=== PATIENT | female | born 1970 | race Caucasian/White ===

== ENCOUNTER 2016-11-27 09:53 | Day surgery (SDC) | payer OTHER ==
[~2016-11-27] VITALS: Ht 154.9 cm; Wt 84.5 kg
[~2016-11-27 09:53] MED LIST: AMOX1TAB61 PO; ASCO-96 PO; CALCIUM PO; DICL100T PO; FLAX1CAP PO; GLUC500T8 PO; IRON PO; LISI1TAB3 PO; LISI1TAB5 PO; METF500T4 PO; OMEG100023 PO; SIMV20TA3 PO; VENL75CA PO; VITA1TAB3 PO
[2016-11-27] MEDS ORDERED: LACTATED RINGERS 1,000 ML IV SCH (10:31)
[2016-11-27] MEDS ORDERED: BUPIVACAINE/PF-EPI 0.25% 1:200K ONE (10:33)
[2016-11-27] MEDS ORDERED: SILVER NITRATE STICK TP ONE (10:33)
[2016-11-27 10:35] VITALS: BP 138/90
[2016-11-27 10:47] LABS: HCG UR OBC PASS
[2016-11-27] MEDS ORDERED: ACETAMINOPHEN 500 MG TABLET ONE ×2 (10:49→11:09)
[2016-11-27] MEDS ORDERED: MIDAZOLAM 1 MG/ML, 2ML ONE (10:51)
[2016-11-27] MEDS ORDERED: FENTANYL PF 250 MCG/5ML ONE (10:51)
[2016-11-27] MEDS ORDERED: PROMETHAZINE 25 MG/ML, 1ML IV PRN (11:00)
[2016-11-27] MEDS ORDERED: OXYcodone 5 MG/5 ML ORAL.SOL UDC PO PRN (11:00)
[2016-11-27] MEDS ORDERED: ONDANSETRON 2MG/ML, 2ML IVPush PRN (11:00)
[2016-11-27] MEDS ORDERED: MEPERIDINE/PF 25MG/0.5ML IVPush PRN (11:00)
[2016-11-27] MEDS ORDERED: hydrALAzine 20 MG/ML, 1ML IV PRN (11:00)
[2016-11-27] MEDS ORDERED: METOPROLOL 1 MG/ML, 5ML IV PRN (11:00)
[2016-11-27] MEDS ORDERED: HYDROmorphone 1 MG/ML, 1ML IV PRN (11:00)
[2016-11-27] MEDS ORDERED: FENTANYL PF 100 MCG/2ML IV PRN (11:00)
[2016-11-27] MEDS ORDERED: MIDAZOLAM 1 MG/ML, 2ML IV PRN (11:00)
[2016-11-27] MEDS ORDERED: EPHEDRINE 50 MG/ML, 1ML IVPush PRN (11:00)
[2016-11-27] MEDS ORDERED: LABETALOL 5MG/ML, 20ML IV PRN (11:00)
[2016-11-27] MEDS ORDERED: METOCLOPRAMIDE 5 MG/ML, 2ML IV PRN (11:00)
[2016-11-27] MEDS ORDERED: SCOPOLAMINE PATCH, 1.5MG PATCH.TD72 TD ONE ×2 (11:07→11:30)
[2016-11-27] MEDS ORDERED: ACETAMINOPHEN 500 MG TABLET PO ONE (11:30)
[2016-11-27] MEDS ORDERED: ONDANSETRON 2MG/ML, 2ML ONE ×2 (12:54→16:27)
[2016-11-27] MEDS ORDERED: METOCLOPRAMIDE 5 MG/ML, 2ML ONE ×2 (13:18→16:27)
[2016-11-27] MEDS ORDERED: PROPOFOL 10 MG/ML, 20ML ONE (16:27)
[2016-11-27] MEDS ORDERED: ALBUTEROL SULFATE 200 PUFFS/8.5 GR INH ONE (16:27)
[2016-11-27] MEDS ORDERED: KETOROLAC 30 MG/1 ML ONE (16:27)
== END 2016-11-27 14:45 | disposition home or self-care (01) ==
LOC: OUT 09:53
PROVIDERS: ATTEND Obstetrics & Gynecology
DX: N93.8 Other specified abnormal uterine and vaginal bleeding (principal); E66.01 Morbid (severe) obesity due to excess calories; Z68.35 Body mass index [BMI] 35.0-35.9, adult; Z90.49 Acquired absence of other specified parts of digestive tract; F32.9 Major depressive disorder, single episode, unspecified; E11.9 Type 2 diabetes mellitus without complications; I10 Essential (primary) hypertension; Z96.651 Presence of right artificial knee joint; Z98.51 Tubal ligation status; Z85.038 Personal history of other malignant neoplasm of large intestine; G43.909 Migraine, unspecified, not intractable, without status migrainosus; Z80.3 Family history of malignant neoplasm of breast; Z80.0 Family history of malignant neoplasm of digestive organs; Z82.49 Family history of ischemic heart disease and other diseases of the circulatory system; Z83.3 Family history of diabetes mellitus; Z83.49 Family history of other endocrine, nutritional and metabolic diseases
CPT/HCPCS: 58563; 81025; 82962; J1885; J2250; J2405; J2704; J2765; J3010; J7120

== ENCOUNTER → 2017-01-09 | Outpatient (CLI) | payer OTHER | END | disposition home or self-care (01) | LOC: CFH 11:30 | PROVIDERS: ATTEND Physician Assistant | DX: R59.1 Generalized enlarged lymph nodes (principal) | CPT/HCPCS: 76536 ==

== ENCOUNTER → 2017-05-15 | Outpatient (CLI) | payer OTHER ==
[~2017-05-15] MED LIST changes: +GLUC500T11 PO; -GLUC500T8 PO
[2017-05-15 15:15] LABS: ASPARTATE AMINO TRANSFERASE 18 U/L (15-37); BLOOD UREA NITROGEN 14 mg/dL (7-18)
== END | disposition home or self-care (01) ==
LOC: STAR 14:02
PROVIDERS: ATTEND Orthopaedic Surgery Orthopaedic Surgery of the Spine
DX: Z01.818 Encounter for other preprocedural examination (principal); M25.562 Pain in left knee
CPT/HCPCS: 36415; 80053; 93005

== ENCOUNTER 2017-05-24 08:41 | Day surgery (SDC) | payer OTHER ==
[~2017-05-24] VITALS: Ht 154.9 cm; Wt 83.0 kg
[~2017-05-24 08:41] MED LIST changes: +BACITRACIN 50,000 UNIT ONE; +BUPIVACAINE/PF 0.5% ONE; +EPINEPHRINE 1 MG/ML, 1ML ONE
[2017-05-24] MEDS ORDERED: LACTATED RINGERS 1,000 ML IV SCH (09:00)
[2017-05-24 09:31] VITALS: BP 139/90
[2017-05-24] MEDS ORDERED: MIDAZOLAM 1 MG/ML, 2ML ONE (09:33)
[2017-05-24] MEDS ORDERED: FENTANYL PF 100 MCG/2ML ONE ×3 (09:33→12:46)
[2017-05-24] MEDS ORDERED: LIDOCAINE-MPF 1%, 5ML ONE (10:18)
[2017-05-24] MEDS ORDERED: BUPIVACAINE/PF 0.5% ONE (10:18)
[2017-05-24] MEDS ORDERED: methylPREDNISolone*ACETATE* 80 MG/ML ONE ×2 (10:18→10:24)
[2017-05-24] MEDS ORDERED: EPINEPHRINE 1 MG/ML, 1ML ONE (10:25)
[2017-05-24] MEDS ORDERED: PROPOFOL 10 MG/ML, 20ML ONE (10:29)
[2017-05-24] MEDS ORDERED: DEXAMETHASONE 4 MG/ML, 1ML ONE (10:29)
[2017-05-24] MEDS ORDERED: KETOROLAC 30 MG/1 ML ONE (10:29)
[2017-05-24] MEDS ORDERED: SUCCINYLCHOLINE 20 MG/ML, 10ML ONE (10:29)
[2017-05-24] MEDS ORDERED: ONDANSETRON 2MG/ML, 2ML ONE (10:29)
[2017-05-24] MEDS ORDERED: CEFAZOLIN 1,000 MG ONE (10:29)
[2017-05-24] MEDS ORDERED: EPHEDRINE 50 MG/ML, 1ML ONE (10:29)
[2017-05-24] MEDS ORDERED: LABETALOL 5MG/ML, 20ML IV PRN (11:00)
[2017-05-24] MEDS ORDERED: ACETAMINOPHEN 325 MG TABLET PO PRN (11:00)
[2017-05-24] MEDS ORDERED: ALBUTEROL/IPRATROPIUM 2.5MG/0.5MG, 3 ML NPPB PRN (11:00)
[2017-05-24] MEDS ORDERED: LORazepam 2 MG/ML, 1ML IVPush PRN (11:00)
[2017-05-24] MEDS ORDERED: ONDANSETRON 2MG/ML, 2ML IVPush PRN (11:00)
[2017-05-24] MEDS ORDERED: MEPERIDINE/PF 25MG/0.5ML IVPush PRN (11:00)
[2017-05-24] MEDS ORDERED: hydrALAzine 20 MG/ML, 1ML IV PRN (11:00)
[2017-05-24] MEDS ORDERED: OXYcodone 5 MG/5 ML ORAL.SOL UDC PO PRN (11:00)
[2017-05-24] MEDS ORDERED: HYDROmorphone 1 MG/ML, 1ML IV PRN (11:00)
[2017-05-24] MEDS ORDERED: FENTANYL PF 100 MCG/2ML IV PRN (11:00)
[2017-05-24] MEDS ORDERED: DIAZEPAM 5 MG/ML, 2ML IVPush PRN (11:00)
[2017-05-24] MEDS ORDERED: MIDAZOLAM 1 MG/ML, 2ML IV PRN (11:00)
[2017-05-24] MEDS ORDERED: PROMETHAZINE 25 MG/ML, 1ML IV PRN (11:00)
[2017-05-24] MEDS ORDERED: METOCLOPRAMIDE 5 MG/ML, 2ML IV PRN (11:00)
[2017-05-24] MEDS ORDERED: EPINEPHRINE 1 MG/ML, 1ML INFIL ONE (11:08)
[2017-05-24] MEDS ORDERED: ACETAMINOPHEN 325 MG TABLET ONE (12:23)
[2017-05-24] MEDS ORDERED: ACETAMINOPHEN 650 MG/20.3 ML UDC ONE (12:23)
[2017-05-24] MEDS ORDERED: OXYcodone 5 MG/5 ML ORAL.SOL UDC ONE (12:47)
== END 2017-05-24 15:50 ==
LOC: OUT 08:41
PROVIDERS: ATTEND Orthopaedic Surgery Orthopaedic Surgery of the Spine
DX: S83.242A Other tear of medial meniscus, current injury, left knee, initial encounter (principal); M23.301 Other meniscus derangements, unspecified lateral meniscus, left knee; M72.2 Plantar fascial fibromatosis; M67.52 Plica syndrome, left knee; M94.262 Chondromalacia, left knee; M65.862 Other synovitis and tenosynovitis, left lower leg; M23.42 Loose body in knee, left knee; X58.XXXA Exposure to other specified factors, initial encounter; Y93.89 Activity, other specified; Y92.89 Other specified places as the place of occurrence of the external cause; Y99.8 Other external cause status; E11.9 Type 2 diabetes mellitus without complications; I10 Essential (primary) hypertension; Z88.1 Allergy status to other antibiotic agents; Z88.5 Allergy status to narcotic agent
CPT/HCPCS: 20550; 29880; 82962; J0171; J0330; J0690; J1040; J1100; J1885; J2250; J2405; J2704; J3010; J3490; J7120

== ENCOUNTER 2017-08-22 19:22 | Emergency (ER) | payer OTHER ==
[~2017-08-22] VITALS: Ht 154.9 cm; Wt 85.3 kg
[~2017-08-22 19:22] MED LIST changes: -BACITRACIN 50,000 UNIT ONE; -BUPIVACAINE/PF 0.5% ONE; -EPINEPHRINE 1 MG/ML, 1ML ONE
[2017-08-22] MEDS ORDERED: SODIUM CHLORIDE 0.9% 1,000ML IV ONE (19:30)
[2017-08-22] MEDS ORDERED: SODIUM CHLORIDE FLUSH 10ML SYR IVF ONE (19:30)
[2017-08-22] MEDS ORDERED: LOVA10TA PO (20:08)
[2017-08-22 20:17] LABS: HEMATOCRIT 43.7 % (34.6-47.8); HEMOGLOBIN 14.6 g/dL (11.7-16.4)
[2017-08-22 20:24] LABS: BLOOD UREA NITROGEN 11 mg/dL (7-18)
[2017-08-22 20:33] VITALS: BP 134/70
== END 2017-08-22 21:35 | disposition home or self-care (01) ==
LOC: ED 19:41
DX: M25.562 Pain in left knee (principal); M54.5 Low back pain; I10 Essential (primary) hypertension
CPT/HCPCS: 36415; 80048; 81001; 82040; 84703; 85025; 87086; 93005; 93971; 96360; 99285; J7030

== ENCOUNTER → 2017-09-06 | Outpatient (CLI) | payer OTHER ==
[~2017-09-06] MED LIST changes: +LOVA10TA PO
== END | disposition home or self-care (01) ==
LOC: CFH 16:41
PROVIDERS: ATTEND Physician Assistant
DX: R42 Dizziness and giddiness (principal); I10 Essential (primary) hypertension; E78.5 Hyperlipidemia, unspecified; F32.9 Major depressive disorder, single episode, unspecified; C18.9 Malignant neoplasm of colon, unspecified; G47.30 Sleep apnea, unspecified; E11.9 Type 2 diabetes mellitus without complications
CPT/HCPCS: 93880

== ENCOUNTER → 2017-09-27 | Outpatient (CLI) | payer OTHER ==
[2017-09-27 08:59] LABS: ALANINE AMINOTRANSFERASE 43 U/L (12-78); ALBUMIN 3.7 g/dL (3.4-5.0); ANION GAP 6 mmol/L (5-15); CALCIUM 9.5 mg/dL (8.5-10.1); CHLORIDE 102 mmol/L (98-107); CREATININE 0.67 mg/dL (0.55-1.02)
[2017-09-27 09:01] LABS: ALKALINE PHOSPHATASE 60 U/L (45-117); BILIRUBIN,TOTAL 0.7 mg/dL (0.2-1.0); TOTAL PROTEIN 7.9 g/dL (6.4-8.2)
== END | disposition home or self-care (01) ==
LOC: STAR 07:38
PROVIDERS: ATTEND Orthopaedic Surgery Orthopaedic Surgery of the Spine
DX: Z01.818 Encounter for other preprocedural examination (principal); M25.562 Pain in left knee
CPT/HCPCS: 36415; 80053; 93005

== ENCOUNTER 2017-10-11 06:21 | Day surgery (SDC) | payer OTHER ==
[2017-09-27 08:20] VITALS: BP 145/92
[~2017-10-11] VITALS: Ht 154.9 cm; Wt 84.1 kg
[2017-10-11] MEDS ORDERED: FENTANYL PF 250 MCG/5ML ONE (06:31)
[2017-10-11] MEDS ORDERED: MIDAZOLAM 1 MG/ML, 2ML ONE (06:31)
[2017-10-11] MEDS ORDERED: DEXAMETHASONE 4 MG/ML, 1ML ONE ×2 (06:33)
[2017-10-11] MEDS ORDERED: ONDANSETRON 2MG/ML, 2ML ONE ×3 (06:33→10:44)
[2017-10-11] MEDS ORDERED: PROPOFOL 10 MG/ML, 20ML ONE (06:33)
[2017-10-11] MEDS ORDERED: SODIUM CHLORIDE 0.9% PF 10ML ONE (06:34)
[2017-10-11] MEDS ORDERED: CEFAZOLIN 1,000 MG ONE ×2 (06:34)
[2017-10-11] MEDS ORDERED: LACTATED RINGERS 1,000 ML IV SCH (07:27)
[2017-10-11] MEDS ORDERED: LIDOCAINE 1%, 2ML SQ PRN (07:30)
[2017-10-11 07:36] LABS: HCG UR SG 1.025 (1.003-1.030)
[2017-10-11] MEDS ORDERED: BUPIVACAINE/PF 0.5% ONE (08:11)
[2017-10-11] MEDS ORDERED: EPINEPHRINE 1 MG/ML, 1ML ONE (08:11)
[2017-10-11] MEDS ORDERED: EPINEPHRINE TOPICAL SOLN 1 MG/ML, 30ML ONE (08:12)
[2017-10-11] MEDS ORDERED: ACETAMINOPHEN 325 MG TABLET PO PRN (08:30)
[2017-10-11] MEDS ORDERED: PROMETHAZINE 12.5 MG SUPP PR PRN (08:30)
[2017-10-11] MEDS ORDERED: ONDANSETRON 2MG/ML, 2ML IVPush PRN (08:30)
[2017-10-11] MEDS ORDERED: OXYcodone 5 MG/5 ML ORAL.SOL UDC PO PRN (08:30)
[2017-10-11] MEDS ORDERED: HYDROmorphone 1 MG/ML, 1ML IV PRN (08:30)
[2017-10-11] MEDS ORDERED: hydrALAzine 20 MG/ML, 1ML IV PRN (08:30)
[2017-10-11] MEDS ORDERED: LABETALOL 5MG/ML, 20ML IV PRN (08:30)
[2017-10-11] MEDS ORDERED: MEPERIDINE/PF 25MG/0.5ML IVPush PRN (08:30)
[2017-10-11] MEDS ORDERED: FENTANYL PF 100 MCG/2ML IV PRN (08:30)
[2017-10-11] MEDS ORDERED: ROCURONIUM 10 MG/ML,10ML ONE ×2 (08:42→08:46)
[2017-10-11] MEDS ORDERED: GLYCOPYRROLATE 0.4 MG/2 ML, 2ML ONE (08:47)
[2017-10-11] MEDS ORDERED: NEOSTIGMINE 1 MG/ML, 10ML ONE (08:47)
[2017-10-11] MEDS ORDERED: methylPREDNISolone*ACETATE* 80 MG/ML ONE (09:48)
[2017-10-11] MEDS ORDERED: ACETAMINOPHEN 650 MG/20.3 ML UDC ONE (10:44)
[2017-10-11] MEDS ORDERED: OXYcodone 5 MG/5 ML ORAL.SOL UDC ONE (10:45)
[2017-10-11] MEDS ORDERED: ONDANSETRON ODT 4 MG ONE (15:56)
[2017-10-11] MEDS ORDERED: KETOROLAC 30 MG/1 ML ONE (15:57)
[2017-10-11] MEDS ORDERED: KETOROLAC 30 MG/1 ML IVPush SCH (16:00)
[2017-10-11] MEDS ORDERED: ONDANSETRON ODT 4 MG PO ONE (16:00)
== END 2017-10-11 16:20 | disposition home or self-care (01) ==
LOC: OUT 06:21
PROVIDERS: ATTEND Orthopaedic Surgery Orthopaedic Surgery of the Spine
DX: M23.212 Derangement of anterior horn of medial meniscus due to old tear or injury, left knee (principal); M23.362 Other meniscus derangements, other lateral meniscus, left knee; M25.762 Osteophyte, left knee; M23.8X2 Other internal derangements of left knee; M94.262 Chondromalacia, left knee; G47.33 Obstructive sleep apnea (adult) (pediatric); I10 Essential (primary) hypertension; F41.9 Anxiety disorder, unspecified; E11.9 Type 2 diabetes mellitus without complications; Z88.8 Allergy status to other drugs, medicaments and biological substances
CPT/HCPCS: 29880; 81025; 82962; J0171; J0690; J1040; J1885; J2250; J2405; J2704; J2710; J3010; J3490; J7120; Q0162; J1100

== ENCOUNTER → 2018-04-11 | Outpatient (CLI) | payer OTHER ==
[~2018-04-11] MED LIST changes: +HYDR-3237 PO; -METF500T4 PO; +METF500T5 PO
[2018-04-11 15:34] LABS: INTERNATIONAL NORMALIZED RATIO 0.97 (0.93-1.1)
[2018-04-11 15:39] LABS: BASOPHILS # (AUTO) 0.05 x10^3/uL (0-0.1); BASOPHILS % (AUTO) 1 % (0-1); EOSINOPHILS # (AUTO) 0.16 x10^3/uL (0-0.4); EOSINOPHILS % (AUTO) 2 % (1-7); LYMPHOCYTES # (AUTO) 3.28 x10^3/uL (1-3.4); LYMPHOCYTES % (AUTO) 33 % (22-44); MD NO; MEAN CORPUSCULAR HEMOGLOBIN 30.8 pg (27.0-34.8); MEAN CORPUSCULAR HGB CONC 34.2 g/dL (32.4-35.8); MEAN PLATELET VOLUME 8.1 fL (7.4-10.4); MONOCYTES # (AUTO) 0.61 x10^3/uL (0.2-0.8); MONOCYTES % (AUTO) 6 % (2-9); NEUTROPHILS # (AUTO) 5.96 x10^3/uL (1.8-6.8); NEUTROPHILS % (AUTO) 59 % (42-75); PLATELET COUNT 228 x10^3/uL (130-400); RED BLOOD COUNT 4.55 x10^6/uL (3.82-5.3); RED CELL DISTRIBUTION WIDTH 13.9 % (9.6-15.2)
[2018-04-11 15:41] LABS: ALBUMIN 3.5 g/dL (3.4-5.0); ANION GAP 6 mmol/L (5-15); CHLORIDE 102 mmol/L (98-107)
[2018-04-11 15:44] LABS: ALANINE AMINOTRANSFERASE 37 U/L (12-78); ALKALINE PHOSPHATASE 61 U/L (45-117); BILIRUBIN,TOTAL 0.6 mg/dL (0.2-1.0); CREATININE 0.67 mg/dL (0.55-1.02); TOTAL PROTEIN 7.7 g/dL (6.4-8.2)
[2018-04-11 16:15] LABS: MICROSCOPIC INDICATED
[2018-04-11 16:31] LABS: HCT (SEDRATE) 43.7 % (34.6-47.8)
== END | disposition home or self-care (01) ==
LOC: STAR 14:13
PROVIDERS: ATTEND Orthopaedic Surgery Orthopaedic Surgery of the Spine
DX: Z01.818 Encounter for other preprocedural examination (principal); I51.7 Cardiomegaly
CPT/HCPCS: 36415; 71046; 80053; 81001; 85025; 85610; 85651; 85730; 87081; 87147; 93005

== ENCOUNTER → 2018-04-15 | Outpatient (CLI) | payer OTHER | END | disposition home or self-care (01) | LOC: STAR 08:15 | PROVIDERS: ATTEND Orthopaedic Surgery Orthopaedic Surgery of the Spine | DX: Z01.818 Encounter for other preprocedural examination (principal); E11.9 Type 2 diabetes mellitus without complications | CPT/HCPCS: 87081 ==

== ENCOUNTER 2018-04-25 05:33 | Inpatient (IN) | payer OTHER ==
[~2018-04-25] VITALS: Ht 154.9 cm; Wt 84.6 kg
[2018-04-25] MEDS ORDERED: LACTATED RINGERS 1,000 ML IV SCH (06:28)
[2018-04-25 06:32] VITALS: BP 150/105
[2018-04-25] MEDS ORDERED: BUPIVACAINE/PF 0.5% ONE (07:00)
[2018-04-25] MEDS ORDERED: VANCOMYCIN 1,000 MG ONE ×2 (07:01→07:59)
[2018-04-25] MEDS ORDERED: EPINEPHRINE 1 MG/ML, 1ML ONE (07:01)
[2018-04-25] MEDS ORDERED: TRANEXAMIC ACID 100 MG/ML, 10ML ONE (07:01)
[2018-04-25] MEDS ORDERED: MIDAZOLAM 1 MG/ML, 2ML ONE (07:07)
[2018-04-25] MEDS ORDERED: FENTANYL PF 250 MCG/5ML ONE (07:08)
[2018-04-25] MEDS ORDERED: OxyconTIN ER 10 MG TAB.ER PO ONE (07:30)
[2018-04-25] MEDS ORDERED: FAMOTIDINE 20 MG TABLET PO ONE (07:30)
[2018-04-25] MEDS ORDERED: GABAPENTIN 300 MG CAPSULE PO ONE (07:30)
[2018-04-25] MEDS ORDERED: ACETAMINOPHEN 500 MG TABLET PO ONE (07:30)
[2018-04-25] MEDS ORDERED: CEFAZOLIN 1,000 MG ONE (07:32)
[2018-04-25] MEDS ORDERED: ONDANSETRON 2MG/ML, 2ML ONE (07:32)
[2018-04-25] MEDS ORDERED: LIDOCAINE GEL 2%, 5ML ONE (07:32)
[2018-04-25] MEDS ORDERED: DEXAMETHASONE 4 MG/ML, 1ML ONE (07:32)
[2018-04-25] MEDS ORDERED: PROPOFOL 10 MG/ML, 20ML ONE (07:32)
[2018-04-25 07:38] LABS: HCG UR SG 1.021 (1.003-1.030)
[2018-04-25] MEDS ORDERED: SUCCINYLCHOLINE 20 MG/ML, 10ML ONE (07:38)
[2018-04-25] MEDS ORDERED: LABETALOL 5MG/ML, 20ML ONE ×2 (07:38→11:14)
[2018-04-25] MEDS ORDERED: ROCURONIUM 10 MG/ML,10ML ONE (07:38)
[2018-04-25] MEDS ORDERED: FENTANYL PF 100 MCG/2ML IV PRN (09:00)
[2018-04-25] MEDS ORDERED: PROMETHAZINE 25 MG/ML, 1ML IV PRN (09:00)
[2018-04-25] MEDS ORDERED: ONDANSETRON ODT 8 MG PO PRN (09:00)
[2018-04-25] MEDS ORDERED: LABETALOL 5MG/ML, 20ML IV PRN (09:00)
[2018-04-25] MEDS ORDERED: PROMETHAZINE 25 MG SUPP PR PRN ×2 (09:00→12:30)
[2018-04-25] MEDS ORDERED: OXYcodone 5 MG/5 ML ORAL.SOL UDC PO PRN (09:00)
[2018-04-25] MEDS ORDERED: MORPHINE SULFATE 4 MG/ML, 1ML IVPush PRN (09:00)
[2018-04-25] MEDS ORDERED: ONDANSETRON 2MG/ML, 2ML IV PRN (09:00)
[2018-04-25] MEDS ORDERED: NALOXONE 0.4 MG/ML, 1ML ONE (09:32)
[2018-04-25] MEDS ORDERED: TRANEXAMIC ACID 100 MG/ML, 10ML IV ONE (10:30)
[2018-04-25] MEDS ORDERED: KETOROLAC 30 MG/1 ML ONE (10:36)
[2018-04-25] MEDS ORDERED: KETOROLAC 30 MG/1 ML IVPush SCH (11:00)
[2018-04-25] MEDS ORDERED: TRANEXAMIC ACID 1,000 MG in SODIUM CHLORIDE 0.9% 100 ML IV ONE (11:00)
[2018-04-25] MEDS ORDERED: OXYcodone 5 MG/5 ML ORAL.SOL UDC ONE (11:04)
[2018-04-25] MEDS ORDERED: FENTANYL PF 100 MCG/2ML ONE (11:07)
[2018-04-25] MEDS ORDERED: LORazepam 1MG TABLET PO PRN (12:30)
[2018-04-25] MEDS ORDERED: ZOLPIDEM 5MG TABLET PO PRN (12:30)
[2018-04-25] MEDS ORDERED: MAGNESIUM HYDROXIDE 8%, 30ML UDC PO PRN (12:30)
[2018-04-25] MEDS ORDERED: LORazepam 2 MG/ML, 1ML IV PRN (12:30)
[2018-04-25] MEDS ORDERED: ALUMINUM/MAG/SIMETHICONE 30 ML UDC PO PRN (12:30)
[2018-04-25] MEDS ORDERED: HYDROcodone/APAP 10/325 MG TABLET PO PRN (12:30)
[2018-04-25] MEDS ORDERED: OXYcodone IR 5MG TABLET PO PRN (12:30)
[2018-04-25] MEDS ORDERED: DIPHENHYDRAMINE 25 MG CAPSULE PO PRN (12:30)
[2018-04-25] MEDS ORDERED: ONDANSETRON ODT 4 MG PO PRN (12:30)
[2018-04-25] MEDS ORDERED: DEXAMETHASONE 4 MG/ML, 1ML IV PRN (12:30)
[2018-04-25] MEDS ORDERED: ONDANSETRON 2MG/ML, 2ML IVPush PRN (12:30)
[2018-04-25] MEDS ORDERED: morphine SULFATE 10 MG/ML, 1ML IV PRN (12:30)
[2018-04-25] MEDS ORDERED: ACETAMINOPHEN 500 MG TABLET PO PRN (12:30)
[2018-04-25] MEDS ORDERED: SENNA/DOCUSATE TABLET PO PRN (12:30)
[2018-04-25] MEDS: LABETALOL 5MG/ML, 20ML IVPush SCH ×2 (12:30→20:30)
[2018-04-25] MEDS ORDERED: BISACODYL 10 MG SUPP PR PRN (12:30)
[2018-04-25] MEDS ORDERED: DIAZEPAM 5 MG TABLET PO PRN (12:30)
[2018-04-25] MEDS ORDERED: SCOPOLAMINE PATCH, 1.5MG PATCH.TD72 TD SCH (12:30)
[2018-04-25] MEDS ORDERED: PROMETHAZINE 25 MG/ML, 1ML IM PRN (12:30)
[2018-04-25 14:58] VITALS: BP 140/82
[2018-04-25] MEDS ORDERED: CEFAZOLIN PMX 2GM/100ML 100 ML IVPB SCH (15:45)
[2018-04-25] MEDS ORDERED: CEFAZOLIN 2,000 MG in SODIUM CHLORIDE 0.9% 50 ML IVPB SCH (15:45)
[2018-04-25] MEDS: POTASSIUM CHLORIDE 20 MEQ in D5%-0.45% NACL 1,000 ML IV SCH (16:29)
[2018-04-25] MEDS: HYDROcodone/APAP 5/325 TABLET PO PRN (16:29)
[2018-04-25] MEDS: ASPIRIN 325 MG TABLET EC PO SCH (18:00)
[2018-04-25 18:39] VITALS: BP 137/81
[2018-04-25] MEDS ORDERED: VANCOMYCIN PMX 1GM/200ML 200 ML IVPB ONE (20:00)
[2018-04-25] MEDS: DOCUSATE 100 MG CAPSULE PO SCH (20:54)
[2018-04-25] MEDS ORDERED: VENLAFAXINE 75 MG CAP ER PO SCH (21:00)
[2018-04-25] MEDS: SODIUM CHLORIDE FLUSH 10ML SYR IVF SCH (21:00)
[2018-04-25] MEDS ORDERED: KETOROLAC 30 MG/1 ML IVPush ONE (21:00)
[2018-04-26 00:33] VITALS: BP 129/80
[2018-04-26] MEDS: POTASSIUM CHLORIDE 20 MEQ in D5%-0.45% NACL 1,000 ML IV SCH ×2 (03:27→08:42)
[2018-04-26 04:34] VITALS: BP 130/82
[2018-04-26 05:12] LABS: BASOPHILS # (AUTO) 0.03 x10^3/uL (0-0.1); BASOPHILS % (AUTO) 0 % (0-1); EOSINOPHILS % (AUTO) 0 % (1-7); LYMPHOCYTES # (AUTO) 1.61 x10^3/uL (1-3.4); LYMPHOCYTES % (AUTO) 14 % (22-44); MD NO; MEAN CORPUSCULAR HEMOGLOBIN 30.3 pg (27.0-34.8); MEAN CORPUSCULAR HGB CONC 33.8 g/dL (32.4-35.8); MEAN CORPUSCULAR VOLUME 89.8 fL (80-100); MEAN PLATELET VOLUME 8.3 fL (7.4-10.4); MONOCYTES # (AUTO) 0.85 x10^3/uL (0.2-0.8); MONOCYTES % (AUTO) 8 % (2-9); NEUTROPHILS # (AUTO) 8.84 x10^3/uL (1.8-6.8); NEUTROPHILS % (AUTO) 78 % (42-75); PLATELET COUNT 202 x10^3/uL (130-400); RED BLOOD COUNT 3.41 x10^6/uL (3.82-5.3)
[2018-04-26] MEDS: LABETALOL 5MG/ML, 20ML IVPush SCH ×2 (05:38→12:30)
[2018-04-26] MEDS: ASPIRIN 325 MG TABLET EC PO SCH (05:38)
[2018-04-26 07:34] VITALS: BP 128/85
[2018-04-26] MEDS: HYDROcodone/APAP 5/325 TABLET PO PRN ×2 (08:46→13:43)
[2018-04-26] MEDS: SODIUM CHLORIDE FLUSH 10ML SYR IVF SCH (08:47)
[2018-04-26] MEDS: DOCUSATE 100 MG CAPSULE PO SCH (08:47)
[2018-04-26] MEDS ORDERED: HYDROCHLOROTHIAZIDE 12.5 MG CAPSULE PO SCH (09:00)
[2018-04-26] MEDS ORDERED: metFORMIN 500 MG TABLET PO SCH (09:00)
[2018-04-26] MEDS ORDERED: LISINOPRIL 20 MG TABLET PO SCH (09:00)
[2018-04-26] MEDS ORDERED: HYDR-879 PO (10:41)
[2018-04-26] MEDS ORDERED: DIAZ5TAB4 PO (10:41)
[2018-04-26] MEDS ORDERED: CEPH-368 PO (10:42)
[2018-04-26] MEDS ORDERED: ASPI-650 PO (10:42)
[2018-04-26] MEDS ORDERED: ONDA8TAB12 PO (10:43)
[2018-04-26] MEDS ORDERED: KETOROLAC 30 MG/1 ML IV SCH (19:00)
== END 2018-04-26 13:40 | disposition home or self-care (01) | DRG 470 ==
LOC: ORIP 05:33 → 4NOR 11:48
PROVIDERS: ADMIT Orthopaedic Surgery Orthopaedic Surgery of the Spine; ATTEND Orthopaedic Surgery Orthopaedic Surgery of the Spine
PROC: 0SRD0J9 Replacement of Left Knee Joint with Synthetic Substitute, Cemented, Open Approach (ICD-10-PCS; principal; 2018-04-25 07:30)
DX: M17.12 Unilateral primary osteoarthritis, left knee (principal); E78.00 Pure hypercholesterolemia, unspecified; E11.9 Type 2 diabetes mellitus without complications; I10 Essential (primary) hypertension; F32.9 Major depressive disorder, single episode, unspecified; G47.30 Sleep apnea, unspecified; Z90.49 Acquired absence of other specified parts of digestive tract; Z79.899 Other long term (current) drug therapy; Z79.84 Long term (current) use of oral hypoglycemic drugs; Z88.5 Allergy status to narcotic agent; Z88.1 Allergy status to other antibiotic agents
CPT/HCPCS: 36415; 81025; 82962; 85025; C1713; J0171; J0690; J1100; J1885; J2250; J2310; J2405; J2704; J3010; J3370; J3480; J3490; C1776; J0330; J7120

== ENCOUNTER → 2018-10-17 | Outpatient (CLI) | payer OTHER ==
[~2018-10-17] MED LIST changes: +ASPI-650 PO; +CEPH-368 PO; +DIAZ5TAB4 PO; +HYDR-3622 PO; +METF500T17 PO; -METF500T5 PO; +ONDA8TAB12 PO
== END | disposition home or self-care (01) ==
LOC: CFH 14:17
PROVIDERS: ATTEND Nurse Practitioner Primary Care
DX: N63.20 Unspecified lump in the left breast, unspecified quadrant (principal); N64.4 Mastodynia
CPT/HCPCS: 76641; 77066; G0279

== ENCOUNTER 2019-07-06 17:24 | Emergency (ER) | payer OTHER ==
[~2019-07-06] VITALS: Ht 154.9 cm; Wt 86.1 kg
[~2019-07-06 17:24] MED LIST changes: +LISI1TAB19 PO; +LISI1TAB23 PO; -LISI1TAB3 PO; -LISI1TAB5 PO
[2019-07-06 18:13] LABS: BASOPHILS # (AUTO) 0.11 x10^3/uL (0-0.1); BASOPHILS % (AUTO) 1 % (0-1); EOSINOPHILS # (AUTO) 0.18 x10^3/uL (0-0.4); EOSINOPHILS % (AUTO) 2 % (1-7); LYMPHOCYTES # (AUTO) 3.23 x10^3/uL (1-3.4); LYMPHOCYTES % (AUTO) 33 % (22-44); MD NO; MEAN CORPUSCULAR HEMOGLOBIN 30.9 pg (27.0-34.8); MEAN CORPUSCULAR HGB CONC 34.3 g/dL (32.4-35.8); MEAN CORPUSCULAR VOLUME 90.2 fL (80-100); MEAN PLATELET VOLUME 7.8 fL (7.4-10.4); MONOCYTES # (AUTO) 0.52 x10^3/uL (0.2-0.8); MONOCYTES % (AUTO) 5 % (2-9); NEUTROPHILS # (AUTO) 5.86 x10^3/uL (1.8-6.8); NEUTROPHILS % (AUTO) 59 % (42-75); PLATELET COUNT 214 x10^3/uL (130-400); RED BLOOD COUNT 4.48 x10^6/uL (3.82-5.3); RED CELL DISTRIBUTION WIDTH 14.4 % (9.6-15.2)
[2019-07-06 18:27] LABS: ALANINE AMINOTRANSFERASE 51 U/L (12-78); ALBUMIN 3.5 g/dL (3.4-5.0); ANION GAP 7 mmol/L (5-15); CALCIUM 8.5 mg/dL (8.5-10.1); CHLORIDE 101 mmol/L (98-107); CREATININE 1.06 mg/dL (0.55-1.02)
[2019-07-06 18:31] LABS: ALKALINE PHOSPHATASE 64 U/L (45-117); BILIRUBIN,TOTAL 0.6 mg/dL (0.2-1.0); TOTAL PROTEIN 7.4 g/dL (6.4-8.2); TROPONIN I < 0.015 ng/mL (0.000-0.045)
--- NOTE | 2019-07-06 18:58 | NUR ---
RECEIVED BS REPORT FROM LIZZ GUTIÉRREZ.
[2019-07-06 19:11] LABS: MICROSCOPIC NOT IND
[2019-07-06 19:13] LABS: CULTURE INDICATED? NO
--- NOTE | 2019-07-06 19:14 | NUR ---
Provided bedside report to LIZZ Urbina. All questions answered. LIZZ Urbina to assume care of pt at this time. NADN. No needs expressed.
[2019-07-06 19:45] VITALS: BP 142/68
== END 2019-07-06 19:50 | disposition home or self-care (01) ==
LOC: ED 19:44
DX: R53.81 Other malaise (principal); I10 Essential (primary) hypertension; Z85.038 Personal history of other malignant neoplasm of large intestine
CPT/HCPCS: 36415; 71046; 80053; 81003; 83880; 84484; 84703; 85025; 93005; 99284

== ENCOUNTER 2019-08-31 15:52 | Emergency (ER) | payer OTHER ==
[~2019-08-31] VITALS: Ht 154.9 cm; Wt 81.0 kg
[2019-08-31] MEDS ORDERED: LOSARTAN (16:43)
[2019-08-31] MEDS ORDERED: HYDROCHLOROTHIAZIDE (16:43)
[2019-08-31] MEDS ORDERED: LOSA100T14 PO (16:58)
[2019-08-31] MEDS ORDERED: HYDR25TA6 PO (16:58)
[2019-08-31] MEDS ORDERED: ONDANSETRON 2MG/ML, 2ML ONE (16:59)
[2019-08-31] MEDS ORDERED: MORPHINE SULFATE 4 MG/ML, 1ML ONE (16:59)
[2019-08-31] MEDS ORDERED: MORPHINE SULFATE 4 MG/ML, 1ML IVPush PRN (17:00)
[2019-08-31] MEDS ORDERED: SODIUM CHLORIDE FLUSH 10ML SYR IVF ONE (17:00)
[2019-08-31] MEDS ORDERED: ONDANSETRON 2MG/ML, 2ML IVPush ONE (17:00)
[2019-08-31 17:20] LABS: BASOPHILS # (AUTO) 0.08 x10^3/uL (0-0.1); BASOPHILS % (AUTO) 1 % (0-1); EOSINOPHILS # (AUTO) 0.19 x10^3/uL (0-0.4); EOSINOPHILS % (AUTO) 2 % (1-7); LYMPHOCYTES # (AUTO) 3.46 x10^3/uL (1-3.4); LYMPHOCYTES % (AUTO) 37 % (22-44); MD NO; MEAN CORPUSCULAR HEMOGLOBIN 29.8 pg (27.0-34.8); MEAN CORPUSCULAR VOLUME 90.3 fL (80-100); MEAN PLATELET VOLUME 8.2 fL (7.4-10.4); MONOCYTES # (AUTO) 0.59 x10^3/uL (0.2-0.8); MONOCYTES % (AUTO) 6 % (2-9); NEUTROPHILS # (AUTO) 5.01 x10^3/uL (1.8-6.8); NEUTROPHILS % (AUTO) 54 % (42-75); PLATELET COUNT 225 x10^3/uL (130-400); RED BLOOD COUNT 4.65 x10^6/uL (3.82-5.3); RED CELL DISTRIBUTION WIDTH 14.6 % (9.6-15.2)
[2019-08-31 17:30] LABS: ALANINE AMINOTRANSFERASE 59 U/L (12-78); ALBUMIN 3.6 g/dL (3.4-5.0); ANION GAP 8 mmol/L (5-15); CALCIUM 9.1 mg/dL (8.5-10.1); CHLORIDE 100 mmol/L (98-107)
[2019-08-31 17:33] LABS: ALKALINE PHOSPHATASE 63 U/L (45-117); BILIRUBIN,TOTAL 1.2 mg/dL (0.2-1.0); CREATININE 0.76 mg/dL (0.55-1.02); TOTAL PROTEIN 7.7 g/dL (6.4-8.2)
[2019-08-31] MEDS ORDERED: OMNIPAQUE 350 MG/ML, 100ML BOTTLE ONE (17:59)
[2019-08-31 18:32] VITALS: BP 136/83
--- NOTE | 2019-08-31 18:34 | NUR ---
PT RESTING CALMLY IN BED REVIEWING PAPERS. NO STATED NEEDS AT THIS TIME. VSS. CALL LIGHT WITHIN REACH. PT ABLE TO PROVIDE URINE SAMPLE. WILL CONTINUE TO MONITOR.
[2019-08-31 18:47] LABS: MICROSCOPIC NOT IND
[2019-08-31 18:51] LABS: CULTURE INDICATED? NO
== END 2019-08-31 19:36 | disposition home or self-care (01) ==
LOC: ED 19:30
DX: R10.11 Right upper quadrant pain (principal); R11.0 Nausea; I10 Essential (primary) hypertension; E11.9 Type 2 diabetes mellitus without complications; Z90.49 Acquired absence of other specified parts of digestive tract; Z85.038 Personal history of other malignant neoplasm of large intestine
CPT/HCPCS: 36415; 74177; 80053; 81003; 83690; 85025; 96374; 96375; 99284; J2270; J2405; Q9967

== ENCOUNTER → 2020-01-04 | Outpatient (CLI) | payer OTHER ==
[~2020-01-04] MED LIST changes: +HYDR25TA6 PO; +HYDROCHLOROTHIAZIDE; +LOSA100T14 PO; +LOSARTAN; +SIMV20TA19 PO; -SIMV20TA3 PO
== END | disposition home or self-care (01) ==
LOC: CVU 14:27
PROVIDERS: ATTEND Internal Medicine Cardiovascular Disease
DX: I10 Essential (primary) hypertension (principal); E78.5 Hyperlipidemia, unspecified; E11.9 Type 2 diabetes mellitus without complications; Z85.038 Personal history of other malignant neoplasm of large intestine
CPT/HCPCS: 93306

== ENCOUNTER → 2020-05-10 | Outpatient (CLI) | payer OTHER ==
[~2020-05-10] MED LIST changes: -LISI1TAB19 PO; +LISI1TAB39 PO; +REGADENOSON 0.4 MG/5 ML SYRINGE ONE
== END | disposition home or self-care (01) ==
LOC: RAD 12:01
PROVIDERS: ATTEND Internal Medicine Cardiovascular Disease
DX: I10 Essential (primary) hypertension (principal)
CPT/HCPCS: 78452; 93017; A9502; J2785

== ENCOUNTER → 2021-03-28 | Outpatient (CLI) | payer OTHER ==
[~2021-03-28] MED LIST changes: +ALIR150P3 SC; +ASPI-1026 PO; -ASPI-650 PO; +COLC0.6T37 PO; +LEVO25TA2 PO; +OLME40TA12 PO; -REGADENOSON 0.4 MG/5 ML SYRINGE ONE
[2021-03-28 11:00] LABS: BASOPHILS % (AUTO) 1 % (0-1); EOSINOPHILS % (AUTO) 3 % (1-7); LYMPHOCYTES % (AUTO) 42 % (22-44); MEAN CORPUSCULAR HEMOGLOBIN 31.2 pg (27.0-34.8); MEAN CORPUSCULAR HGB CONC 34.3 g/dL (32.4-35.8); MEAN PLATELET VOLUME 8.1 fL (7.4-10.4); MONOCYTES % (AUTO) 5 % (2-9); NEUTROPHILS % (AUTO) 49 % (42-75); PLATELET COUNT 183 x10^3/uL (130-400); RED BLOOD COUNT 4.63 x10^6/uL (3.82-5.3); RED CELL DISTRIBUTION WIDTH 13.8 % (9.6-15.2)
[2021-03-28 11:09] LABS: ALANINE AMINOTRANSFERASE 131 U/L (12-78); ALBUMIN 3.5 g/dL (3.4-5.0); ANION GAP 4 mmol/L (5-15); CHLORIDE 100 mmol/L (98-107); CREATININE 0.79 mg/dL (0.55-1.02)
[2021-03-28 11:13] LABS: ALKALINE PHOSPHATASE 60 U/L (45-117); TOTAL PROTEIN 7.5 g/dL (6.4-8.2)
== END | disposition home or self-care (01) ==
LOC: STAR 09:54
PROVIDERS: ATTEND Obstetrics & Gynecology
DX: Z01.818 Encounter for other preprocedural examination (principal); R94.31 Abnormal electrocardiogram [ECG] [EKG]; R10.2 Pelvic and perineal pain; N94.6 Dysmenorrhea, unspecified
CPT/HCPCS: 36415; 80053; 84702; 85025; 93005

== ENCOUNTER 2021-04-12 05:15 | Day surgery (SDC) | payer OTHER ==
[~2021-04-12] VITALS: Ht 154.9 cm; Wt 86.2 kg
[2021-04-12 06:11] VITALS: BP 147/94
[2021-04-12] MEDS ORDERED: BUPIVACAINE/PF 0.25% ONE (06:11)
[2021-04-12] MEDS ORDERED: EPINEPHRINE 1 MG/ML, 1ML ONE (06:11)
[2021-04-12] MEDS ORDERED: FLUORESCEIN SODIUM 500 MG/5 ML ONE (06:11)
[2021-04-12 06:17] LABS: HCG UR SG 1.029 (1.003-1.030)
[2021-04-12] MEDS ORDERED: LACTATED RINGERS 1,000 ML IV SCH (06:30)
[2021-04-12] MEDS ORDERED: CHLORHEXIDINE 15 ML UDC PO ONE (06:30)
[2021-04-12] MEDS ORDERED: FENTANYL PF 250 MCG/5ML ONE (06:42)
[2021-04-12] MEDS ORDERED: MIDAZOLAM 1 MG/ML, 2ML ONE (06:42)
[2021-04-12] MEDS ORDERED: INSULIN SINGLE DOSE, ER ONE ×3 (06:42→10:39)
[2021-04-12] MEDS ORDERED: LIDOCAINE-MPF 2% ,5ML ONE (06:45)
[2021-04-12] MEDS ORDERED: hydrALAzine 20 MG/ML, 1ML IV PRN (07:00)
[2021-04-12] MEDS ORDERED: EPHEDRINE 50 MG/ML, 1ML IVPush PRN (07:00)
[2021-04-12] MEDS ORDERED: ONDANSETRON 2MG/ML, 2ML IVPush PRN (07:00)
[2021-04-12] MEDS ORDERED: LABETALOL 5MG/ML, 20ML IV PRN (07:00)
[2021-04-12] MEDS ORDERED: OXYcodone 5 MG/5 ML ORAL.SOL UDC PO PRN (07:00)
[2021-04-12] MEDS ORDERED: FENTANYL PF 100 MCG/2ML IV PRN (07:00)
[2021-04-12] MEDS ORDERED: ACETAMINOPHEN 325 MG TABLET PO PRN (07:00)
[2021-04-12] MEDS ORDERED: HYDROmorphone 1 MG/ML, 1ML INJ IVPush PRN (07:00)
[2021-04-12] MEDS ORDERED: INSULIN REGULAR 100 UNITS/ML, 3ML VIAL SQ-INSULIN ONE ×2 (07:00→09:30)
[2021-04-12] MEDS ORDERED: PROMETHAZINE 25 MG/ML, 1ML IVPush PRN (07:00)
[2021-04-12] MEDS ORDERED: KETOROLAC 30 MG/1 ML ONE ×2 (07:15)
[2021-04-12] MEDS ORDERED: PROPOFOL 10 MG/ML, 20ML ONE (07:15)
[2021-04-12] MEDS ORDERED: CEFAZOLIN 1,000 MG ONE (07:15)
[2021-04-12] MEDS ORDERED: ROCURONIUM 10MG/ML,5ML ONE (07:15)
[2021-04-12] MEDS ORDERED: GLYCOPYRROLATE 0.2MG/1ML, 5ML ONE (07:15)
[2021-04-12] MEDS ORDERED: SUCCINYLCHOLINE 20 MG/ML, 10ML ONE (07:15)
[2021-04-12] MEDS ORDERED: NEOSTIGMINE 1 MG/ML, 10ML ONE (07:15)
[2021-04-12] MEDS ORDERED: DEXAMETHASONE 4 MG/ML, 1ML ONE (07:15)
[2021-04-12] MEDS ORDERED: ONDANSETRON 2MG/ML, 2ML ONE ×2 (07:15→09:17)
[2021-04-12] MEDS ORDERED: EPHEDRINE 50 MG/ML, 1ML ONE ×2 (07:18)
[2021-04-12] MEDS ORDERED: PHENYLEPHRINE 10 MG/ML ONE (07:23)
[2021-04-12] MEDS ORDERED: BUPIVACAINE/PF-EPI 0.25% 1:200K INFIL ONE (07:39)
[2021-04-12] MEDS ORDERED: OXYcodone 5 MG/5 ML ORAL.SOL UDC ONE (09:11)
[2021-04-12] MEDS ORDERED: INSULIN REGULAR 100 UNITS/ML, 3ML VIAL SQ-INSULIN STA (10:32)
== END 2021-04-12 13:25 | disposition home or self-care (01) ==
LOC: OUT 05:15
PROVIDERS: ATTEND Obstetrics & Gynecology
DX: N94.6 Dysmenorrhea, unspecified (principal); D25.9 Leiomyoma of uterus, unspecified; E11.9 Type 2 diabetes mellitus without complications; E78.5 Hyperlipidemia, unspecified; I10 Essential (primary) hypertension; G47.33 Obstructive sleep apnea (adult) (pediatric); E66.9 Obesity, unspecified; Z20.822 Contact with and (suspected) exposure to COVID-19; Z68.36 Body mass index [BMI] 36.0-36.9, adult; Z79.84 Long term (current) use of oral hypoglycemic drugs; Z79.890 Hormone replacement therapy; Z79.899 Other long term (current) drug therapy; Z88.5 Allergy status to narcotic agent; Z88.8 Allergy status to other drugs, medicaments and biological substances; Z98.51 Tubal ligation status; Z90.49 Acquired absence of other specified parts of digestive tract; Z98.890 Other specified postprocedural states
CPT/HCPCS: 58552; 81025; 82962; 88307; J0171; J0330; J0690; J1100; J1815; J1885; J2250; J2370; J2405; J2704; J2710; J3010; J7120; U0003; U0005